=== PATIENT | male | born 1960 | race African-American/Black ===

== ENCOUNTER → 2017-04-03 | Outpatient (CLI) | payer OTHER ==
[~2017-04-03] MED LIST: IOHEXOL 350 MG/ML 10 ML VIAL (for RAD DIAG) IV ONE; OXYC-392 PO; WALKER WHEELS/F1 MIS; Z.0.NO CURRENT MEDS
--- NOTE | 2017-04-03 17:33 | RADRPT ---
EXAM DATE/TIME: 04/03/2017 15:25 [place] COMPARISON: CT dated 03/23/2017. INDICATIONS : Follow up on pancreatic pseudocyst. IV CONTRAST: 100 cc Omnipaque 350 (iohexol) IV ORAL CONTRAST: Prescribed oral contrast ingested. RADIATION DOSE: 9.96 CTDIvol (mGy) MEDICAL HISTORY : None SURGICAL HISTORY : None. ENCOUNTER: Initial ACUITY: 1 day PAIN SCALE: 1/10 LOCATION: Left upper quadrant TECHNIQUE: Volumetric scanning of the abdomen and pelvis was performed. Using automated exposure control and ad justment of the mA and/or kV according to patient size, radiation dose was kept as low as reasonably achievable to obtain optimal diagnostic quality images. DICOM format image data is available electro nically for review and comparison. FINDINGS: LOWER LUNGS: There is mild residual interstitial air space opacity at the lung bases, left greater than right. The consolidation present at the left lung base previously has improved. LIVER: Homogeneous density without lesion. There is no dilation of the biliary tree. There are a few small calcified stones in the gallbladder. SPLEEN: There is minimal presumed residual enhancing splenic tissue in the left upper quadrant measuring 4 x 2 cm. Abutting this structure is heterogeneous mixed density finding measuring approximately 10.0 x 7 .2 x 8.4 cm. The collection contains a percutaneous drainage catheter and there are 2 embolization co ils in the inferior aspect. The collection contains a small amount of air. Although the collection brock s a different appearance than previously it previously measured approximately 12.6 x 10.4 cm. PANCREAS: There is calcification in the pancreatic head with subtle inflammatory changes around the head and ta il. The tail abuts the inferior aspect of the left upper quadrant collection. These findings are stab le. KIDNEYS: Normal in size and shape. There is no mass, stone or hydronephrosis. ADRENAL GLANDS: Within normal limits. There is fat stranding around the left adrenal gland. VASCULAR: There is mild/moderate atherosclerotic disease. No aneurysm is present. BOWEL/MESENTERY: Stomach demonstrates no acute finding. The left upper quadrant collection has mild mass effect on the proximal gastric body. There is a second fluid collection abutting the greater curvature measuring 3 .8 x 3.3 x 3.1 cm compared to 5.1 x 4.0 cm previously. There are no findings to indicate bowel obstru ction. There is bowel wall thickening of a segment of small bowel in the left mid abdomen, likely mid to distal jejunum. There are lobulated low-density structures in the region of the omentum anteriorl y. These are stable. ABDOMINAL WALL: Within normal limits. RETROPERITONEUM: There is no lymphadenopathy. BLADDER: No wall thickening or mass. REPRODUCTIVE: Within normal limits. INGUINAL: There is no lymphadenopathy or hernia. MUSCULOSKELETAL: There are degenerative changes of the lumbar spine. CONCLUSION: 1. The left upper quadrant perisplenic collection has decreased in size, as above. It currently measu res approximately 10.0 x 7.2 x 8.4 cm compared to 12.6 x 10.4 cm previously. Additionally, it contain s air and a drainage catheter. There is residual fluid that appears loculated adjacent to this collec tion. 2. The fluid collection along the greater curvature the stomach has also slightly decreased in size. 3. The lobulated low-density collections in the region of the omentum are stable and of uncertain kaylene ology. 4. There is wall thickening of a segment of mid to distal jejunum. 5. Mild residual inflammatory changes present at the tail of the pancreas and head of the pancreas. 6. The airspace opacities at the lung bases have improved but not yet completely resolved. Jose Luis Caballero MD on April 03, 2017 at 17:23 Board Certified Radiologist. This report was verified electronically.
== END ==
LOC: HRAD 13:59
PROVIDERS: ATTEND Surgery
DX: K86.3 Pseudocyst of pancreas (principal)
CPT/HCPCS: 74177; Q9967